=== PATIENT | female | born 1975 ===

== ENCOUNTER 2019-01-22 08:35 | Day surgery (SDC) | payer OTHER ==
[2019-01-22] MEDS ORDERED: DOXYCYCLINE HY100 M3 PO (16:51)
[2019-01-22] MEDS ORDERED: Tylenol #3 PO (16:51)
== END 2019-01-22 19:05 | disposition home or self-care (01) ==
LOC: CIR.AMB 08:35 → EDBD 11:30 → CIR.AMB 11:30
DX: N84.0 Polyp of corpus uteri (principal); D25.0 Submucous leiomyoma of uterus